=== PATIENT | female | born 1970 | race Caucasian/White ===

== ENCOUNTER 2019-03-03 13:46 | Observation (INO) ==
--- NOTE | 2019-03-03 14:04 | Emergency Department Note ---
Disposition Clinical Impression: Generalized weakness Pneumonia Qualifiers: Pneumonia type: due to unspecified organism Laterality: left Lung location: lower lobe of lung Qualified Code(s): J18.1 - Lobar pneumonia, unspecified organism Intractable vomiting with nausea Qualifiers: Vomiting type: unspecified Qualified Code(s): R11.2 - Nausea with vomiting, unspecified Disposition: Admitted As Inpatient Condition: Fair Referrals: Yuly Mc, DEADENER [Primary Care Provider] - Forms: ED Satisfaction Letter Time of Disposition: 15:15 General Adult HPI - General Chief complaint: ED Nausea/Vomiting/Diarrhea Stated complaint: V/D, body hurts, MACIAS x 8 days Time Seen by Provider: 03/03/19 14:05 Source: patient Mode of arrival: private vehicle Limitations: no limitations Nursing Notes Reviewed: Yes Vital Signs Reviewed: Yes - History of Present Illness HPI Narrative: Patient presents with an eight-day history of headaches, nausea, vomiting and diarrhea. She states she has diffuse body pains. Headache is also diffuse, tight is worse with cough or brushing her hair. She is been having the nausea with vomiting 3-4 times a day and frequent daily bowel movements. She denies any blood or mucus in emesis or stool. She states she has had minimal to eat for the past week as her symptoms are worse with eating. She admits to fevers and chills. She denies chest pain or shortness of breath but has had a dry, nonproductive cough. She denies any ill exposures, recent antibiotics, foodborne illness concerns or travel. She denies any episodes like this before. She is started feeling more fatigue, weakness or presyncopal complaints. She states she feels weak and dizzy and is much worse with standing. She has not checked with her family doctor. She arrives by private auto. 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 With her headache they are concerned about it as well. Onset (ago): day(s) (8) Location: head, other (Diffuse body aches and pain) Associated symptoms: Reports: cough, fever/chills, headaches, loss of appetite, malaise, nausea/vomiting (Diarrhea), weakness. Denies: confusion, chest pain, diaphoresis, rash, seizure, shortness of breath, syncope - Related Data Home Medications Medication Instructions Recorded Confirmed Trazodone HCl 100 mg PO DAILY 02/10/18 03/03/19 Venlafaxine [Effexor] 75 mg PO DAILY 02/10/18 03/03/19 Allergies Allergy/AdvReac Type Severity Reaction Status Date / Time hydromorphone [From Dilaudid] AdvReac Agitated Verified 03/03/19 13:48 All systems ED: reviewed and negative except as stated. Past Medical History - Past Medical History Attestation: Yes The following information was validated with the patient. 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 Absent: scleral icterus, conjunctival injection - ENT ENT exam: normal exam, normal oropharynx, mucous membranes dry - Neck Neck exam: Present: normal inspection, full ROM, trachea midline. Absent: tenderness - Chest Chest inspection: Present: normal inspection, symmetric chest wall rise - Respiratory Respiratory exam: Present: normal lung sounds bilaterally. Absent: respiratory distress, wheezes, prolonged expiratory phase - Cardiovascular Cardiovascular exam: Present: regular rate, normal rhythm, tachycardia, normal heart sounds - Abdominal Exam Abdominal exam: Present: soft, normal bowel sounds. Absent: distention, guarding, rebound, rigidity, Angle's sign, Rovsing's sign, tenderness at McBurney's Point, hernia Abdominal tenderness: Present: diffuse, mild - Extremities Exam Extremities exam: Present: normal inspection, full ROM, normal capillary refill. Absent: tenderness, pedal edema, calf tenderness - Expanded Lower Extremity Exam Neurovascular/Tendon exam: Present: normal capillary refill. Absent: motor deficit, sensory deficit, tendon deficit Gait: observed and normal - Back Exam Back exam: Present: normal inspection, full ROM. Absent: tenderness, CVA tenderness (R), CVA tenderness (L) - Neurological Exam Neurological exam: Present: alert, oriented X3, normal gait - Psychiatric Psychiatric exam: Present: normal affect, normal mood. Absent: agitated, anxious - Skin Skin exam: Present: warm, dry, intact, normal color. Absent: diaphoresis, pallor Course Course Narrative: Patient was evaluated immediately upon arrival. Given her persistent nausea, vomiting and reported postural near syncope, IV fluids were started as well as Zofran. CT head and abdomen as well as baseline laboratory is been ordered. 1450: Imaging results are discussed with the patient. She does have a dense pneumonia in the left chest. She is written to receive a dose of Rocephin and azithromycin intravenously as well as a DuoNeb aerosol. Given her persistent vomiting, diarrhea and decreased oral intake I do not believe she will be able to be discharged at this time on oral medicines. With return of additional testing, I will talk to the hospitalist about possible observation. 1500: Dr. Lanza was available for consultation. I advised him of the patient's presentation and workup to this point. We are awaiting the official radiology readings on the imaging. If they do not provide additional diagnosis requiring transfer, he is agreeable with observation at this facility and has given preliminary instructions for orders. Vital Signs Temperature 99.1 F 03/03/19 13:54 Pulse Rate 108 03/03/19 13:54 Respiratory Rate 18 03/03/19 13:54 Blood Pressure 111/71 03/03/19 13:54 O2 Sat by Pulse Oximetry 94 03/03/19 13:54 Temperature 99.1 F 03/03/19 13:54 Pulse Rate 108 03/03/19 13:54 Respiratory Rate 18 03/03/19 13:54 Blood Pressure 111/71 03/03/19 13:54 O2 Sat by Pulse Oximetry 94 03/03/19 13:54 Oxygen Delivery Oxygen Delivery Room Air Medical Decision Making - Medical Records Medical records reviewed: Yes I reviewed the patient's medical records. REASON FOR EXAM: CHRONIC NONINTRACTABLE H/A 0 cc: Yuly Mc; EXAMINATION: MRI OF THE BRAIN WITHOUT AND WITH CONTRAST 07/20/2017 8:00 am TECHNIQUE: Multiplanar multisequence MRI of the head/brain was performed without and with the administration of intravenous contrast. COMPARISON: 05/08/2013 HISTORY: ORDERING SYSTEM PROVIDED HISTORY: CHRONIC NONINTRACTABLE H/A History of brain cyst. Ongoing evaluation. FINDINGS: INTRACRANIAL STRUCTURES/VENTRICLES: No acute infarction. No mass effect or midline shift. No evidence of an acute intracranial hemorrhage. The ventricles and sulci are normal in size and configuration. Again seen is partially empty sella. The normal signal voids within the major intracranial vessels appear maintained. No abnormal focus of enhancement is seen within the brain. ORBITS: The visualized portion of the orbits demonstrate no acute abnormality. SINUSES: The visualized paranasal sinuses and mastoid air cells are well aerated. BONES/SOFT TISSUES: The bone marrow signal intensity appears normal. The soft tissues demonstrate no acute abnormality. MR/MR head/brain wo/w con IMPRESSION: Stable MRI of the brain. No acute intracranial abnormality. Redemonstration of partially empty sella. This is a nonspecific finding and is often a normal variant. Otherwise, unremarkable MRI of the brain without and with contrast. D/ / Caitlyn Cool MD / Caitlyn Cool MD - Lab Data Lab results reviewed: Yes I reviewed the patient's lab results. Result diagrams: 03/03/19 14:27 03/03/19 14:27 Lab Results 03/03/19 03/03/19 03/03/19 Range/Units 14:14 14:27 14:27 WBC 10.5 (4.3-11.1) K/mcL RBC 3.33 L (3.82-4.97) M/mcL Hgb 10.7 L (11.5-15.4) g/dL Hct 30.0 L (35.3-44.9) % MCV 90.1 (83.0-100.0) fL MCH 32.1 (28.0-33.3) pg MCHC 35.7 H (31.6-35.5) g/dL RDW 11.9 (11.5-14.5) % Plt Count 248 (140-400) K/mcL MPV 9.1 L (9.4-12.4) fL Immature Gran % 1.1 (0-4) % Seg Neutrophils % 79.2 % Lymphocytes % 8.6 % Monocytes % 10.7 % Eosinophils % 0.1 % Basophils % 0.3 % Neutrophils # 8.3 (1.6-8.9) K/mcL Lymphocytes # 0.9 (0.6-4.6) K/mcL Monocytes # 1.1 (0.0-1.3) K/mcL Eosinophils # 0.0 (0.0-0.6) K/mcL Basophils # 0.0 (0.0-0.2) K/mcL Sodium 125 L (136-145) mEq/L Potassium 3.4 L (3.5-5.1) mEq/L Chloride 93 L (98-107) mEq/L Carbon Dioxide 24 (23-29) mEq/L BUN 10 (6-20) mg/dL Creatinine 0.84 (0.60-1.20) mg/dL Est GFR ( Amer) > 60 (> 60) Est GFR (Non-Af Amer) > 60 (> 60) BUN/Creatinine Ratio 12 (6-26) Glucose 113 H (70-105) mg/dL Calculated Osmolality 260 L (280-300) Calcium 8.9 (8.6-10.3) mg/dL Total Bilirubin 0.3 (0.3-1.0) mg/dL Direct Bilirubin 0.1 (0.0-0.2) mg/dL Indirect Bilirubin 0.2 (0.0-1.2) mg/dL AST 28 (13-39) Units/L ALT 29 (7-52) Units/L Alkaline Phosphatase 98 (34-104) Units/L Serum Total Protein 6.7 (6.4-8.9) g/dL Albumin 3.5 (3.5-5.7) g/dL Globulin 3.2 (2.4-3.5) g/dL Albumin/Globulin Ratio 1.1 (1.1-2.2) Amylase 21 L (29-103) Units/L Lipase 15 (11-82) Units/L Urine Color Yellow (Yellow) Urine Clarity Clear (Clear) Urine pH 6.0 (5.0-8.0) pH Units Ur Specific [place] >= 1.030 H (1.010-1.025) Urine Protein >=300 H (Neg-Trace) mg/dL Urine Glucose (UA) Normal (Normal) mg/dL Urine Ketones Trace H (Negative) mg/dL Urine Blood Moderate H (Negative) Urine Nitrite Negative (Negative) Urine Bilirubin Small H (Negative) Urine Urobilinogen Normal (Normal) mg/dL Ur Leukocyte Esterase Negative (Negative) Urine Microscopic RBC 3-5 H (0-3) per hpf Urine Microscopic WBC 0-3 (0-3) per hpf Ur Squamous Epith Cells Few (None-Few) per lpf Urine Bacteria Moderate H (None-Few) per hpf Urine Mucus Few (Few) Urine Yeast Moderate H (None Seen) per hpf Ur Culture Indicated? YES A (NO) - Radiology Data Radiology results reviewed: Yes I reviewed the patient's radiology results. CT head is performed. This is reviewed on bone and soft tissue windows. There is no evidence for acute intracranial bleed, shift, mass or edema. Patient does have a partially empty sella turcica as described previous imaging. Mastoids and sinuses appear normal. There is no fracture evident. This is on my interpretation. CT is performed of the abdomen and pelvis without IV or oral contrast. This demonstrates the lungs have a prominent left lateral infiltrate. The liver, spleen and pancreas appear normal. The gallbladder surgically absent. The bowel is without inflammatory change, obstruction or perforation. Kidneys are without stone or obstruction. I do not see other acute process at this time to explain her vomiting and diarrhea. This is on my interpretation. Single view chest x-ray is performed. This confirms a dense left lateral pleural-based infiltrate without other effusion, pneumothorax, foreign body or heart failure. The cardiac silhouette is normal. I do not see abnormality to the osseous structures of the chest. This is on my interpretation. Impressions Abdomen/Pelvis CT 03/03/19 14:50 IMPRESSION: Patchy consolidation the left lower lobe and lingula concerning for pneumonia. No acute findings in the abdomen or pelvis. D/ / Dahlia Desai MD / Dahlia Desai MD Interpreting Provider: Dahlia Desai MD Head CT 03/03/19 14:52 IMPRESSION: No acute intracranial abnormality. D/ / Bora Pastor MD / Bora Pastor MD Interpreting Provider: Bora Pastor MD Chest X-Ray 03/03/19 14:58 IMPRESSION: Left lung opacity concerning for pneumonia. D/ / Dahlia Desai MD / Dahlia Desai MD Interpreting Provider: Dahlia Desai MD
[2019-03-03] MEDS ORDERED: Ondansetron 4 MG/2 ML VIAL IVP ONE (14:16)
[2019-03-03] MEDS ORDERED: 0.9 % Sodium Chloride 1,000 ML IVC ONE (14:16)
[2019-03-03 14:25] LABS: Bilirubin,Urine Small (Negative); Blood,Urine Moderate (Negative); Clarity,Urine Clear (Clear); Color,Urine Yellow (Yellow); Glucose,Urine (UA) Normal (Normal); Ketones,Urine Trace mg/dL (Negative); Leukocyte Esterase,Urine Negative (Negative); Nitrite,Urine Negative (Negative); Protein,Urine >=300 mg/dL (Neg-Trace); Specific Gravity,Urine >= 1.030 (1.010-1.025); Urobilinogen,Urine Normal (Normal)
[2019-03-03] MEDS ORDERED: 0.9 % Sodium Chloride 1,000 ML IVC SCH ×2 (14:30→16:17)
[2019-03-03 14:33] LABS: Bacteria,Urine Moderate per hpf (None-Few); Mucus,Urine Few (Few); Squamous Epithelial Cell,Urine Few per lpf (None-Few); WBC,Urine 0-3 per hpf (0-3); Yeast,Urine Moderate per hpf (None Seen)
[2019-03-03 14:34] LABS: Basophils % 0.3 %; Eosinophils % 0.1 %; Hemoglobin 10.7 g/dL (11.5-15.4); Immature Granulocytes % 1.1 % (0-4); Lymphocytes # 0.9 K/mcL (0.6-4.6); Lymphocytes % 8.6 %; Mean Corpuscular HGB Conc 35.7 g/dL (31.6-35.5); Mean Corpuscular Hemoglobin 32.1 pg (28.0-33.3); Mean Corpuscular Volume 90.1 fL (83.0-100.0); Mean Platelet Volume 9.1 fL (9.4-12.4); Monocytes # 1.1 K/mcL (0.0-1.3); Monocytes % 10.7 %; Neutrophils # 8.3 K/mcL (1.6-8.9); Platelet Count 248 K/mcL (140-400); Red Blood Count 3.33 M/mcL (3.82-4.97); Red Cell Distribution Width 11.9 % (11.5-14.5); Segmented Neutrophils % 79.2 %; White Blood Count 10.5 K/mcL (4.3-11.1)
[2019-03-03] MEDS ORDERED: Azithromycin 500 MG in 0.9 % Sodium Chloride 250 ML IVPB ONE (14:49)
[2019-03-03] MEDS ORDERED: cefTRIAXone 2,000 MG in 0.9 % Sodium Chloride Mini Bag 100 ML IVPB ONE (14:49)
[2019-03-03] MEDS ORDERED: Ipratropium/Albuterol Neb 3 ML IH ONE (14:50)
[2019-03-03 14:52] LABS: Alanine Aminotransferase 29 Units/L (7-52); Albumin 3.5 g/dL (3.5-5.7); Albumin/Globulin Ratio 1.1 (1.1-2.2); Alkaline Phosphatase 98 Units/L (34-104); Amylase 21 Units/L (29-103); Aspartate Amino Transferase 28 Units/L (13-39); BUN/Creatinine Ratio 12 (6-26); Bilirubin,Direct 0.1 mg/dL (0.0-0.2); Bilirubin,Indirect 0.2 mg/dL (0.0-1.2); Bilirubin,Total 0.3 mg/dL (0.3-1.0); Blood Urea Nitrogen 10 mg/dL (6-20); Calcium 8.9 mg/dL (8.6-10.3); Carbon Dioxide 24 mEq/L (23-29); Chloride 93 mEq/L (98-107); Globulin 3.2 g/dL (2.4-3.5); Glucose 113 mg/dL (70-105); Lipase 15 Units/L (11-82); Osmolality,Calculated 260 (280-300); Potassium 3.4 mEq/L (3.5-5.1); Sodium 125 mEq/L (136-145); Total Protein 6.7 g/dL (6.4-8.9); eGFR For African Americans > 60 (> 60); eGFR For Non-African Americans > 60 (> 60)
[2019-03-03] MEDS ORDERED: Naloxone 0.4 MG/ML INJ IVP PRN (16:17)
[2019-03-03] MEDS ORDERED: Ondansetron ODT 4 MG TAB.RAPDIS SL PRN (16:17)
[2019-03-03] MEDS ORDERED: MOM Conc 10 ML UD.LIQ PO PRN (16:17)
[2019-03-03] MEDS ORDERED: Mag Hydrox/Al Hydrox/Simeth 30 ML UDC PO PRN (16:17)
[2019-03-03] MEDS: Ipratropium/Albuterol Neb 3 ML IH SCH ×2 (16:36→21:44)
[2019-03-03] MEDS: Acetaminophen 325 MG TABLET PO PRN (17:54)
--- NOTE | 2019-03-03 18:31 | Internal Med History&Physical ---
Date of Encounter: 03/03/19 Time of Encounter: 18:00 Assessment and Plan (1) Pneumonia Current visit: Yes Status: Acute She has been started on Rocephin and Zithromax. Lactobacillus will be added. Pro-calcitonin will be ordered. Qualifiers: Pneumonia type: due to unspecified organism Laterality: left Lung location: lower lobe of lung Qualified Code(s): J18.1 - Lobar pneumonia, unspecified organism (2) Anemia Current visit: Yes Status: Acute Vitamin B12 level was low at 242 on 05/02/2018. Anemia testing will be done in a.m. Qualifiers: Anemia type: unspecified type Qualified Code(s): D64.9 - Anemia, unspeci fied (3) Hyponatremia Current visit: Yes Status: Acute Possibly secondary to pneumonia (SIADH) and/or vomiting/diarrhea. IV fluids have been ordered. Recheck labs in a.m. (4) Hypokalemia Current visit: Yes Status: Acute Likely secondary to vomiting/diarrhea. Supplemental potassium will be given and labs rechecked in a.m. (5) Anxiety and depression Current visit: Yes Status: Acute Continue Effexor. Internal Medicine - H&P: HPI Chief complaint: Vomiting, diarrhea, headache, pneumonia Admitted From: Emergency Dept Plans for Post Hospital Care: Home History of present illness: Ms. Plummer is a 48 year old female who came to emergency room complaining of 8 day history of nonbloody vomiting and diarrhea with diffuse headache. She also had fevers and chills. She felt she possibly had "the flu" and did not seek medical attention sooner. She was evaluated in the ER and was found to have evidence of left lower lobe and lingula pneumonia with hyponatremia and hypo kalemia. She was admitted to [facility] floor for ongoing care needs. Respiratory history is significant for having smoked since age 16 up to 1 pack per day. She denies chronic lung disease and does not use home oxygen. She has not been tested for sleep apnea. GI history is pertinent for being diagnosed with ulcerative colitis approximately 2016. Most recent colonoscopy was 2018. She has had c holecystectomy. She denies disorders of her liver or exocrine pancreas. Past Med Surg Social Fam HX - Past Medical History Medical history: GERD, other Additional medical history: Hx of ulcerative colitis with remicade Psychiatric history: anxiety, depression - Past Surgical History Surgical History: cholecystectomy, hysterectomy, other Additional surgical history: tubal ligation - colonoscopy -egd - Social History Smoking Status: Current every day smoker Packs per day: 1 Smokeless Tobacco Status: No Alcohol use: rarely Drug use: none - Family History Mother Adopted: [place]: anne marie Mayorga Age: 68 Family Member Ethnicity: Non- Living Status: Still Living Hx Family Cardiac Disorders: No Hx Family Respiratory Disorders: Yes (COPD former smoker) Hx Family Cancer: No Hx Family GI Disorders: No Hx Family Genitourinary Disorders: No Hx Family Endocrine Disorder: No Hx Family Musculoskeletal Disorders: No Hx Family Neuromuscular Disorders: No Hx Family Neurologic Disorders: Yes (has tremors) Hx Family HEENT Disorders: No Hx Family Autoimmune Disorders: No Hx Family Reproductive Disorders: No Hx Family Psychosocial Disorders: No Hx Family Medical Disorders: No Internal Medicine - H&P: Meds Trazodone HCl 100 mg PO DAILY 02/10/18 [History] Venlafaxine [Effexor] 75 mg PO DAILY 02/10/18 [History] Allergy/AdvReac Type Severity Reaction Status Date / Time hydromorphone [From Dilaudid] AdvReac Agitated Verified 03/03/19 13:48 All Systems PM: A 10-system review of systems was performed and is negative for pertinent findings except as documented above in the HPI. Review of systems: Gen.: She states her weight has been stable for several months Cardiovascular: She denies hypertension CA heart failure angina DVT or pulmonary embolus Respiratory: As per history of present illness GI: As per history of present illness : She denies hematuria dysuria or kidney stones Neurologic: She denies large distribution strokes or seizures. Endocrine: She denies diabetes thyroid disease or hyperlipidemia Hematology/oncology: She has history of anemia. She denies internal malignancies or other blood disorders. Psychiatric: She has anxiety depression denies other mental health diagnoses. [place] skeletal: She has DJD but denies gout or other bone joint or muscle disorders. - Constitutional Vitals: Temp Pulse Resp BP Pulse Ox 101.9 F H 97 17 102/68 96 03/03/19 17:47 03/03/19 17:47 03/03/19 17:47 03/03/19 17:47 03/03/19 17:47 Exam: Gen.: She is a well-developed well-nourished female resting comfortably in bed who appears in minimal discomfort at present time HEENT: Head is atraumatic and normocephalic. Eyes: EOMI. There is no scleral icterus. Mouth: Mucosa is slightly dry. Neck: There is no thyromegaly or adenopathy noted. There is minimal discomfort on flexion of the neck. Heart: Regular without murmurs gallops or ectopics. Rate is approximately 84 per minute. Lungs: No wheezes or crackles are heard. Abdomen: Soft and nontender. No masses or guarding are noted. Extremities: There is no cyanosis edema or clubbing noted. Dorsalis pedis and posterior tibial pulses are trace palpable bilaterally. Neurologic: Mental status: She is talkative and a good historian. Cranial nerves: Smile is symmetric. Forehead wrinkles bilaterally. Tongue protrudes midline. EOMI. Motor: There is no pronator drift. Cerebellar: Finger to nose is intact bilaterally. Skin: Warm and dry Internal Med - H&P Results - Labs CBC & Chem 7: 03/03/19 14:27 03/03/19 14:27 Labs: Short CBC 03/03/19 Range/Units 14:27 WBC 10.5 (4.3-11.1) K/mcL Hgb 10.7 L (11.5-15.4) g/dL Hct 30.0 L (35.3-44.9) % Plt Count 248 (140-400) K/mcL Neutrophils # 8.3 (1.6-8.9) K/mcL BMP 03/03/19 14:27 Sodium 125 L Potassium 3.4 L Chloride 93 L Carbon Dioxide 24 BUN 10 Creatinine 0.84 Glucose 113 H Calcium 8.9 Liver Function 03/03/19 Range/Units 14:27 Total Bilirubin 0.3 (0.3-1.0) mg/dL Direct Bilirubin 0.1 (0.0-0.2) mg/dL AST 28 (13-39) Units/L ALT 29 (7-52) Units/L Alkaline Phosphatase 98 (34-104) Units/L Albumin 3.5 (3.5-5.7) g/dL Urine 03/03/19 Range/Units 14:14 Urine Color Yellow (Yellow) Urine Clarity Clear (Clear) Urine pH 6.0 (5.0-8.0) pH Units Ur Specific [place] >= 1.030 H (1.010-1.025) Urine Protein >=300 H (Neg-Trace) mg/dL Urine Glucose (UA) Normal (Normal) mg/dL - Impressions ITS Impressions Abdomen/Pelvis CT 03/03/19 14:50 IMPRESSION: Patchy consolidation the left lower lobe and lingula concerning for pneumonia. No acute findings in the abdomen or pelvis. D/ / Dahlia Desai MD / Dahlia Desai MD Interpreting Provider: Dahlia Desai MD Head CT 03/03/19 14:52 IMPRESSION: No acute intracranial abnormality. D/ / Bora Pastor MD / Bora Pastor MD Interpreting Provider: Bora Pastor MD Chest X-Ray 03/03/19 14:58 IMPRESSION: Left lung opacity concerning for pneumonia. D/ / Dahlia Desai MD / Dahlia Desai MD Interpreting Provider: Dahlia Desai MD
[2019-03-03] MEDS: 0.9 % Sodium Chloride w KCl 20 MEQ/1,000 ML MLS IVC SCH (21:03)
[2019-03-03] MEDS: traZODone 50 MG TABLET PO SCH (21:03)
[2019-03-03] MEDS: *HR* OxyCODONE/APAP 5/325 TABLET PO PRN (21:04)
[2019-03-04] MEDS: 0.9 % Sodium Chloride w KCl 20 MEQ/1,000 ML MLS IVC SCH ×3 (04:19→13:45)
[2019-03-04] MEDS: Acetaminophen 325 MG TABLET PO PRN ×2 (04:19→13:07)
[2019-03-04] MEDS: Ipratropium/Albuterol Neb 3 ML IH SCH ×2 (04:29→10:27)
[2019-03-04 07:19] LABS: Basophils % 0.3 %; Eosinophils % 0.2 %; Hematocrit 27.3 % (35.3-44.9); Hemoglobin 9.2 g/dL (11.5-15.4); Immature Granulocytes % 1.4 % (0-4); Lymphocytes # 1.4 K/mcL (0.6-4.6); Lymphocytes % 16.2 %; Mean Corpuscular HGB Conc 33.7 g/dL (31.6-35.5); Mean Corpuscular Hemoglobin 31.4 pg (28.0-33.3); Mean Corpuscular Volume 93.2 fL (83.0-100.0); Mean Platelet Volume 9.7 fL (9.4-12.4); Monocytes % 10.8 %; Neutrophils # 6.3 K/mcL (1.6-8.9); Platelet Count 242 K/mcL (140-400); Red Blood Count 2.93 M/mcL (3.82-4.97); Red Cell Distribution Width 12.3 % (11.5-14.5); Segmented Neutrophils % 71.1 %; White Blood Count 8.8 K/mcL (4.3-11.1)
[2019-03-04 07:34] LABS: BUN/Creatinine Ratio 7 (6-26); Blood Urea Nitrogen 5 mg/dL (6-20); Calcium 7.8 mg/dL (8.6-10.3); Carbon Dioxide 23 mEq/L (23-29); Chloride 105 mEq/L (98-107); Glucose 102 mg/dL (70-105); Osmolality,Calculated 273 (280-300); Potassium 3.8 mEq/L (3.5-5.1); Sodium 133 mEq/L (136-145); eGFR For African Americans > 60 (> 60); eGFR For Non-African Americans > 60 (> 60)
[2019-03-04 07:36] LABS: Magnesium 1.7 mg/dL (1.6-2.6)
[2019-03-04] MEDS ORDERED: traZODone 50 MG TABLET PO SCH (09:00)
[2019-03-04 10:05] LABS: Ferritin 296 ng/mL (10-120); Iron < 10 mcg/dL (50-170); Transferrin 121 mg/dL (203-362)
[2019-03-04] MEDS: *HR* OxyCODONE/APAP 5/325 TABLET PO PRN ×3 (10:27→19:53)
[2019-03-04] MEDS ORDERED: Albuterol 2.5 MG/3 ML NEBULIZER IH PRN (11:29)
--- NOTE | 2019-03-04 11:34 | Internal Med Progress Note ---
Date of Encounter: 03/04/19 Time of Encounter: 11:25 - Assessment and plan (1) Pneumonia Current Visit: Yes Status: Acute Assessment and plan: March 04. Continue Rocephin and Zithromax with lactobacillus. Pro- calcitonin level was borderline WNL at 0.15. Recheck labs in a.m. Qualifiers: Pneumonia type: due to unspecified organism Laterality: left Lung location: lower lobe of lung Qualified Code(s): J18.1 - Lobar pneumonia, unspecified organism (2) Anemia Current Visit: Yes Status: Acute Assessment and plan: March 04. Hemoglobin has decreased to 9.2 with IV fluids. Anemia testing showed iron < 10, transferrin 121, ferritin 296, B12 264, and folate 13.0. She will start oral ferrous sulfate with ascorbic acid in a.m. MMA will be checked to further evaluate B12 status. Qualifiers: Anemia type: unspecified type Qualified Code(s): D64.9 - Anemia, unspecified (3) Hyponatremia Current Visit: Yes Status: Acute Assessment and plan: March 04. Sodium level improved to 133. Decrease IV fluid rate. Recheck labs in a.m. (4) Hypokalemia Current Visit: Yes Status: Acute Assessment and plan: March 04. Potassium level normal at 3.8. Continue potassium supplementation and monitor labs. (5) Anxiety and depression Current Visit: Yes Status: Acute Assessment and plan: March 04. Continue Effexor and trazodone. - Subjective Interval history: March 04. She has no new complaints. She is still having some discomfort in her left posterior lung area. - Constitutional Vitals: Temp Pulse Resp BP Pulse Ox 99.6 F 88 18 80/54 97 03/04/19 05:59 03/04/19 05:59 03/04/19 05:59 03/04/19 05:59 03/04/19 05:59 Exam: She is resting comfortably in bed and appears in no acute distress. Her affect is overall cheerful. Lungs show no wheezes or crackles or egophony. I reviewed her medications, vitals, and lab results. Internal Medicine: Result - Labs CBC & Chem 7: 03/04/19 06:50 03/04/19 06:50 Labs: Short CBC 03/03/19 03/04/19 Range/Units 14:27 06:50 WBC 10.5 8.8 (4.3-11.1) K/mcL Hgb 10.7 L 9.2 L D (11.5-15.4) g/dL Hct 30.0 L 27.3 L (35.3-44.9) % Plt Count 248 242 (140-400) K/mcL Neutrophils # 8.3 6.3 (1.6-8.9) K/mcL BMP 03/03/19 03/04/19 14:27 06:50 Sodium 125 L 133 L Potassium 3.4 L 3.8 Chloride 93 L 105 Carbon Dioxide 24 23 BUN 10 5 L Creatinine 0.84 0.75 Glucose 113 H 102 Calcium 8.9 7.8 L Liver Function 03/03/19 Range/Units 14:27 Total Bilirubin 0.3 (0.3-1.0) mg/dL Direct Bilirubin 0.1 (0.0-0.2) mg/dL AST 28 (13-39) Units/L ALT 29 (7-52) Units/L Alkaline Phosphatase 98 (34-104) Units/L Albumin 3.5 (3.5-5.7) g/dL Urine 03/03/19 Range/Units 14:14 Urine Color Yellow (Yellow) Urine Clarity Clear (Clear) Urine pH 6.0 (5.0-8.0) pH Units Ur Specific [place] >= 1.030 H (1.010-1.025) Urine Protein >=300 H (Neg-Trace) mg/dL Urine Glucose (UA) Normal (Normal) mg/dL - Impressions Impressions Abdomen/Pelvis CT 03/03/19 14:50 IMPRESSION: Patchy consolidation the left lower lobe and lingula concerning for pneumonia. No acute findings in the abdomen or pelvis. D/ / Dahlia Desai MD / Dahlia Desai MD Interpreting Provider: Dahlia Desai MD Head CT 03/03/19 14:52 IMPRESSION: No acute intracranial abnormality. D/ / Bora Pastor MD / Bora Pastor MD Interpreting Provider: Bora Pastor MD Chest X-Ray 03/03/19 14:58 IMPRESSION: Left lung opacity concerning for pneumonia. D/ / Dahlia Desai MD / Dahlia Desai MD Interpreting Provider: Dahlia Desai MD Consult Discharge Plan - Plan Referrals: Yuly Mc, CLINICAL EDUCATION CONSULTANT [Primary Care Provider] - 1 week
[2019-03-04] MEDS ORDERED: cefTRIAXone 2,000 MG in 0.9 % Sodium Chloride Mini Bag 100 ML IVPB SCH (12:00)
[2019-03-04] MEDS: cefTRIAXone 2,000 MG in Water for inj. (sterile) 20 ML IVP SCH (15:44)
[2019-03-04] MEDS: Azithromycin 500 MG in 0.9 % Sodium Chloride 250 ML IVPB SCH (15:45)
[2019-03-04] MEDS: traZODone 50 MG TABLET PO SCH (19:53)
[2019-03-05] MEDS: 0.9 % Sodium Chloride w KCl 20 MEQ/1,000 ML MLS IVC SCH ×4 (02:37→23:03)
[2019-03-05] MEDS ORDERED: *HR* Enoxaparin 40 MG/0.4 ML SYRINGE SQ SCH (06:00)
[2019-03-05] MEDS: Ascorbic Acid 500 MG TABLET PO SCH (06:20)
[2019-03-05 07:47] LABS: Basophils # 0.1 K/mcL (0.0-0.2); Basophils % 0.7 %; Eosinophils # 0.2 K/mcL (0.0-0.6); Eosinophils % 1.9 %; Hematocrit 27.1 % (35.3-44.9); Hemoglobin 9.1 g/dL (11.5-15.4); Immature Granulocytes % 3.9 % (0-4); Lymphocytes # 2.1 K/mcL (0.6-4.6); Lymphocytes % 24.3 %; Mean Corpuscular HGB Conc 33.6 g/dL (31.6-35.5); Mean Corpuscular Hemoglobin 31.4 pg (28.0-33.3); Mean Corpuscular Volume 93.4 fL (83.0-100.0); Mean Platelet Volume 9.7 fL (9.4-12.4); Monocytes # 0.9 K/mcL (0.0-1.3); Neutrophils # 5.2 K/mcL (1.6-8.9); Platelet Count 293 K/mcL (140-400); Red Cell Distribution Width 12.8 % (11.5-14.5); Segmented Neutrophils % 59.2 %; White Blood Count 8.7 K/mcL (4.3-11.1)
[2019-03-05 08:52] LABS: Alanine Aminotransferase 37 Units/L (7-52); Albumin 2.9 g/dL (3.5-5.7); Alkaline Phosphatase 85 Units/L (34-104); Aspartate Amino Transferase 27 Units/L (13-39); BUN/Creatinine Ratio 6 (6-26); Bilirubin,Total 0.2 mg/dL (0.3-1.0); Blood Urea Nitrogen 4 mg/dL (6-20); Calcium 8.5 mg/dL (8.6-10.3); Carbon Dioxide 24 mEq/L (23-29); Chloride 107 mEq/L (98-107); Glucose 83 mg/dL (70-105); Osmolality,Calculated 278 (280-300); Potassium 4.3 mEq/L (3.5-5.1); Sodium 136 mEq/L (136-145); Total Protein 5.9 g/dL (6.4-8.9); eGFR For African Americans > 60 (> 60); eGFR For Non-African Americans > 60 (> 60)
--- NOTE | 2019-03-05 10:10 | Internal Med Progress Note ---
Date of Encounter: 03/05/19 Time of Encounter: 10:00 - Assessment and plan (1) Pneumonia Current Visit: Yes Status: Acute Assessment and plan: March 04. Continue Rocephin and Zithromax with lactobacillus. Pro- calcitonin level was borderline WNL at 0.15. Recheck labs in a.m. March 05. Repeat pro-calcitonin level pending. WBC remains normal with no left shift. Continue present Rx. Anticipate discharge home tomorrow if stable. Qualifiers: Pneumonia type: due to unspecified organism Laterality: left Lung location: lower lobe of lung Qualified Code(s): J18.1 - Lobar pneumonia, unspecified organism (2) Anemia Current Visit: Yes Status: Acute Assessment and plan: March 04. Hemoglobin has decreased to 9.2 with IV fluids. Anemia testing showed iron < 10, transferrin 121, ferritin 296, B12 264, and folate 13.0. She will start oral ferrous sulfate with ascorbic acid in a.m. MMA will be checked to further evaluate B12 status. March 05. Hemoglobin minimally changed at 9.1. Continue ferrous sulfate with ascorbic acid. MMA pending. Qualifiers: Anemia type: unspecified type Qualified Code(s): D64.9 - Anemia, unspecified (3) Hyponatremia Current Visit: Yes Status: Acute Assessment and plan: March 04. Sodium level improved to 133. Decrease IV fluid rate. Recheck labs in a.m. March 05. Sodium normal at 136. Decrease IV fluid rate. (4) Hypokalemia Current Visit: Yes Status: Acute Assessment and plan: March 04. Potassium level normal at 3.8. Continue potassium supplementation and monitor labs. March 05. Potassium normal at 4.3. Decrease IV fluid rate. (5) Anxiety and depression Current Visit: Yes Status: Acute Assessment and plan: March 04. Continue Effexor and trazodone. - Subjective Interval history: March 04. She has no new complaints. She is still having some discomfort in her left posterior lung area. March 05. She has no new complaints. Her left posterior lung area discomfort is still present but is lessen. She reports cough is minimally productive. - Constitutional Vitals: Temp Pulse Resp BP Pulse Ox 98.5 F 74 16 99/60 97 03/05/19 06:35 03/05/19 06:35 03/05/19 06:35 03/05/19 06:35 03/05/19 06:35 Exam: She is sitting on the side of bed resting comfortably and appears in no acute distress. Her affect is overall cheerful. Lungs show no wheezes or crackles. She does not appear dyspneic. I reviewed her medications and lab results. Internal Medicine: Result - Labs CBC & Chem 7: 03/05/19 07:21 03/05/19 07:21 Labs: Short CBC 03/05/19 Range/Units 07:21 WBC 8.7 (4.3-11.1) K/mcL Hgb 9.1 L (11.5-15.4) g/dL Hct 27.1 L (35.3-44.9) % Plt Count 293 (140-400) K/mcL Neutrophils # 5.2 (1.6-8.9) K/mcL BMP 03/05/19 07:21 Sodium 136 Potassium 4.3 Chloride 107 Carbon Dioxide 24 BUN 4 L Creatinine 0.67 Glucose 83 Calcium 8.5 L Liver Function 03/05/19 Range/Units 07:21 Total Bilirubin 0.2 L (0.3-1.0) mg/dL AST 27 (13-39) Units/L ALT 37 (7-52) Units/L Alkaline Phosphatase 85 (34-104) Units/L Albumin 2.9 L (3.5-5.7) g/dL Consult Discharge Plan - Plan Referrals: Yuly Mc, INTERNATIONAL ACCOUNTANT [Primary Care Provider] - 1 week
[2019-03-05] MEDS: cefTRIAXone 2,000 MG in Water for inj. (sterile) 20 ML IVP SCH (11:17)
[2019-03-05] MEDS: Azithromycin 500 MG in 0.9 % Sodium Chloride 250 ML IVPB SCH (11:18)
[2019-03-05] MEDS: Acetaminophen 325 MG TABLET PO PRN (20:29)
[2019-03-05] MEDS: traZODone 50 MG TABLET PO SCH (20:29)
[2019-03-06] MEDS: Ascorbic Acid 500 MG TABLET PO SCH (05:58)
[2019-03-06 08:10] VITALS: BP 100/65
--- NOTE | 2019-03-06 10:01 | Discharge Summary ---
Orders not resulted at time of discharge: Pending orders 03/04/19 12:41 MMA (VIT B12 STATUS) Routine Date of Encounter: 03/06/19 Time of Encounter: 09:51 - Discharge Diagnosis (1) Pneumonia Priority: Primary Status: Acute Qualifiers: Pneumonia type: due to unspecified organism Laterality: left Lung location: lower lobe of lung Qualified Code(s): J18.1 - Lobar pneumonia, unspecified organism (2) Anemia Priority: Secondary Status: Acute Qualifiers: Anemia type: unspecified type Qualified Code(s): D64.9 - Anemia, unspecified (3) Hyponatremia Priority: Secondary Status: Resolved (4) Hypokalemia Priority: Secondary Status: Resolved (5) Anxiety and depression Priority: Secondary Status: Chronic Hospital course: Ms. Plummer is a 48 year old female who came to emergency room complaining of 8 day history of nonbloody vomiting and diarrhea with diffuse headache. She also had fevers and chills. She felt she possibly had "the flu" and did not seek medical attention sooner. She was evaluated in the ER and was found to have evidence of left lower lobe and lingula pneumonia with hyponatremia and hypokalemia. She was admitted to [facility] floor for ongoing care needs. Initial orders were written by the emergency room physician. I saw her on March 03 and performed the history and physical. She was started empirically on Rocephin and Zithromax with lactobacillus. Pro calcitonin level returned borderline WNL at 0.15. 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 She remained afebrile afterward. Repeat pro-calcitonin 03/05/2019 was WNL at 0.08. She felt significantly improved on March 06 and stable for discharge home. Antibiotics will not be continued at discharge. Anemia testing showed iron< 10, transferrin 121, ferritin 296, B12 264, and folate 13.0. She was started on ferrous sulfate with ascorbic acid and these will be continued at discharge. She will follow with her PCP Yuly Mc CNP within 1 week. I encouraged her to become a nonsmoker. Room air oximetry will be checked on 6 minute walk prior to discharge. - Time Spent with Patient Total time spent providing and/or coordinating discharge services: - Discharge Medications Prescriptions: New Ferrous Sulfate 325 mg PO 0630 #30 tablet Ascorbic Acid [Vitamin C] 500 mg PO 0630 #30 tablet Continued Trazodone HCl 100 mg PO DAILY Venlafaxine [Effexor] 75 mg PO DAILY Home Medications: Trazodone HCl 100 mg PO DAILY 02/10/18 [History] Venlafaxine [Effexor] 75 mg PO DAILY 02/10/18 [History] Ascorbic Acid [Vitamin C] 500 mg PO 0630 #30 tablet 03/06/19 [Rx] Ferrous Sulfate 325 mg PO 0630 #30 tablet 03/06/19 [Rx] Allergies/Adverse Reactions: Allergy/AdvReac Type Severity Reaction Status Date / Time hydromorphone [From Dilaudid] AdvReac Agitated Verified 03/03/19 13:48 Date of admission: 03/03/19 15:41 Primary care physician: Yuly Mc CNP Consults: 03/03/19 18:11 Consult to Coil Strapper [CONS] Routine Reason for SW Consult: financial concerns - Constitutional Vitals: Temp Pulse Resp BP Pulse Ox 98.1 F 74 18 100/65 95 03/06/19 08:09 03/06/19 08:09 03/06/19 08:09 03/06/19 08:09 03/06/19 08:09 - Patient Status Disposition: Home, Self-Care Condition: Fair - Discharge Instructions Follow Up With: Yuly Mc CNP [Primary Care Provider] - 1 week - Diet and Activity Activity: resume usual activities as tolerated Diet: advance to your usual diet
[2019-03-06] MEDS ORDERED: FLU Vac QV 19-20 (6Month+)/PF 0.5 ML SYRINGE IM ONE (10:59)
== END 2019-03-06 11:24 | disposition home or self-care (01) ==
LOC: EMEROOPIK 13:46 → INPPIK 13:46
PROVIDERS: ADMIT Internal Medicine; ATTEND Internal Medicine